=== PATIENT | male | born 1940 | race Caucasian/White ===

== ENCOUNTER → 2021-10-25 | Outpatient (CLI) | payer OTHER, MEDICARE ==
[~2021-10-25] MED LIST: AMLODIPINE BESYL5 M1 PO; ASPIRIN81 M2 PO; LEVOTHYROXINE0.05 MG PO; LIPITOR20 MG; LISINOPRIL-HCT1 EAC2; LOPRESSOR25 PO; TAMSULOSIN HCL0.4 M1 PO
== END ==
LOC: SJCVCIMAG 07:55
PROVIDERS: ATTEND Internal Medicine
DX: I08.1 Rheumatic disorders of both mitral and tricuspid valves (principal); I65.22 Occlusion and stenosis of left carotid artery; I70.221 Atherosclerosis of native arteries of extremities with rest pain, right leg; I99.8 Other disorder of circulatory system; I10 Essential (primary) hypertension; E78.00 Pure hypercholesterolemia, unspecified; Z95.828 Presence of other vascular implants and grafts; Z98.890 Other specified postprocedural states